=== PATIENT | male | born 1970 | race Caucasian/White ===

== ENCOUNTER 2016-10-21 19:29 | Inpatient (IN) | payer OTHER ==
[2016-10-21 20:25] VITALS: BMI 23.2
--- NOTE | 2016-10-21 20:43 | HP ---
CIWA Score - CIWA Score Nausea/Vomitin Muscle Tremors: 3 Anxiety: 3 Agitation: 2 Paroxysmal Sweats: 2 Orientation: 0-Oriented Tacttile Disturbances: 2-Mild Itch/Numbness/Burn Auditory Disturbances: 2-Mild Harshness/Frighten Visual Disturbances: 2-Mild Sensitivity Headache: 2-Mild CIWA-Ar Total Score: 21 Admission ROS BHS - HPI Chief Complaint: i am here needed help to stop drinking alcohol Allergies/Adverse Reactions: Allergies Allergy/AdvReac Type Severity Reaction Status Date / Time No Known Drug Allergies Allergy Verified 10/21/16 21:42 History of Present Illness: this 46 years old male with alcohol dependence seeking help to stop drinking alcohol,never been in treatment before syncope alcohol related depression weight loss no significant period of sobriety Exam Limitations: No Limitations - Ebola screening Have you traveled outside of the country in the last 21 days: No Have you had contact with anyone from an Ebola affected area: No Have you been sick,other than usual withdrawal symptoms: No Do you have a fever: No - Review of Systems Constitutional: Loss of Appetite, Malaise, Night Sweats, Changes in sleep, Unintentional Wgt. Loss EENT: reports: Nose Congestion Respiratory: reports: No Symptoms reported Cardiac: reports: Palpitations GI: reports: Diarrhea, Nausea, Vomiting, Abdominal cramping : reports: No Symptoms Reported Musculoskeletal: reports: Back Pain, Muscle Pain Integumentary: reports: Dryness Neuro: reports: Headache, Tremors Endocrine: reports: No Symptoms Reported Hematology: reports: No Symptoms Reported Psychiatric: reports: Depressed Patient History - Patient Medical History Hx Anemia: No Hx Asthma: No Hx Chronic Obstructive Pulmonary Disease (COPD): No Hx Cancer: No Hx Cardiac Disorders: No Hx Congestive Heart Failure: No Hx Hypertension: No Hx Hypercholesterolemia: No Hx Pacemaker: No HX Cerebrovascular Accident: No Hx Seizures: No Hx Dementia: No Hx Diabetes: No Hx Gastrointestinal Disorders: No Hx Liver Disease: No Hx Genitourinary Disorders: No Hx Sexually Transmitted Disorders: No Hx Renal Disease (ESRD): No Hx Thyroid Disease: No Hx Human Immunodeficiency Virus (HIV): No (2014 last negative) Hx Hepatitis C: No Hx Depression: No Hx Suicide Attempt: No Hx Bipolar Disorder: No Hx Schizophrenia: No Other Medical History: no suicidal,no homicidal - Patient Surgical History Past Surgical History: Yes Hx Abdominal Surgery: Yes (HERNIA.umbilical hernia repair in 2006) Anesthesia Reaction: No - PPD History Previous Implant?: Yes Documented Results: Negative w/o proof Implanted On Prior [facility] Admission?: No PPD to be Administered?: Yes - Smoking Cessation Smoking history: Never smoked Have you smoked in the past 12 months: No Hx Chewing Tobacco Use: No - Substance & Tx. History Hx Alcohol Use: Yes Hx Substance Use: No Substance Use Type: Alcohol Hx Substance Use Treatment: No - Substances Abused Alcohol Route: Oral Frequency: Daily Amount used: 1 liter of bacardi Age of first use: 17 Date of Last Use: 10/21/16 Family Disease History - Family Disease History Family Disease History: Other: Father (alcohol,leukemia) Admission Physical Exam [facility] - Vital Signs Vital Signs: Vital Signs - 24 hr 10/21/16 20:21 Temperature 98.0 F Pulse Rate 110 H Respiratory 20 Rate Blood Pressure 128/79 - Physical General Appearance: Yes: Moderate Distress, Tremorous, Irritable, Sweating, Anxious HEENTM: Yes: Normal ENT Inspection, BEN, Pharynx Normal Respiratory: Yes: Lungs Clear, Normal Breath Sounds, No Respiratory Distress Neck: Yes: Within Normal Limits, Supple, Trachea in good position Breast: Yes: Within Normal Limits Cardiology: Yes: Within Normal Limits, Regular Rhythm, Regular Rate, S1, S2 Abdominal: Yes: Normal Bowel Sounds, Non Tender, Flat, Soft, Surgical Scar Genitourinary: Yes: Within Normal Limits Back: Yes: Muscle Spasm Musculoskeletal: Yes: full range of Motion, Back pain, Muscle Pain Extremities: Yes: Within Normal Limits, Normal Range of Motion, Tremors 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, Fully Oriented, Alert, Motor Strength 5/5 Integumentary: Yes: Normal Color Lymphatic: Yes: Within Normal Limits - Diagnostic (1) Alcohol dependence with uncomplicated withdrawal Current Visit: Yes Status: Acute (2) Alcohol dependence with uncomplicated intoxication Current Visit: Yes Status: Acute (3) Syncope Current Visit: Yes Status: Acute (4) Depression Current Visit: Yes Status: Acute Cleared for Admission [facility] - Detox or Rehab [facility] Level of Care: Medically Managed Detox Regimen/Protocol: Librium S Breath Alcohol Content Breath Alcohol Content: 0.311 Urine Drug Screen - Results Drug Screen Negative: No
[2016-10-21] MEDS ORDERED: guaiFENesin/D-METHORPHAN HB 10 ML UNIT-DOSE CUPS PO PRN (20:59)
[2016-10-21] MEDS ORDERED: MAGNESIUM CITRATE 300 ML BOTTLE PO PRN (20:59)
[2016-10-21] MEDS ORDERED: MAG HYDROX/AL HYDROX/SIMETH 30 ML UNIT-DOSE CUP PO PRN (20:59)
[2016-10-21] MEDS ORDERED: ACETAMINOPHEN 325 MG TABLET (FP) PO PRN (20:59)
[2016-10-21] MEDS ORDERED: MENTHOL/PHENOL 1 EACH UD MM PRN (20:59)
[2016-10-21] MEDS ORDERED: LOPERAMIDE HCL 2 MG CAPSULE PO PRN (20:59)
[2016-10-21] MEDS ORDERED: MAGNESIUM HYDROX 2400MG/30ML ORAL SUSPENSION 30 ML CUP PO PRN (20:59)
[2016-10-21] MEDS ORDERED: chlordiazePOXIDE HCL 25 MG CAPSULE PO ONE (20:59)
[2016-10-21] MEDS ORDERED: P-EPHED 60MG/TRIPROLIDI 2.5MG TABLET PO PRN (20:59)
[2016-10-21] MEDS ORDERED: hydrOXYzine PAMOATE 50 MG CAPSULE (FP) PO PRN (20:59)
[2016-10-21] MEDS ORDERED: IBUPROFEN 400 MG TABLET (FP) PO PRN (20:59)
[2016-10-21] MEDS: THIAMINE HCL 100 MG TABLET (FP) PO SCH (22:20)
[2016-10-21] MEDS: chlordiazePOXIDE HCL 25 MG CAPSULE PO SCH (22:21)
[2016-10-22] MEDS: diphenhydrAMINE HCL 50 MG CAPSULE PO PRN (01:33)
[2016-10-22] MEDS: chlordiazePOXIDE HCL 25 MG CAPSULE PO PRN ×2 (01:33→14:55)
[2016-10-22] MEDS: chlordiazePOXIDE HCL 25 MG CAPSULE PO SCH ×4 (05:12→22:34)
--- NOTE | 2016-10-22 08:28 | CONSULT ---
[facility] Psychiatric Consult - Data Date of interview: 10/22/16 Admission source: [facility] Identifying data: This is 46 years old guinean speaking male with no psychiatric hospitalization history iontoxciated wioth: Alcohol Substance Abuse History: - Smoking Cessation. Smoking history: Never smoked. Have you smoked in the past 12 months: No. Hx Chewing Tobacco Use: No. - Substance & Tx. History. Hx Alcohol Use: Yes. Hx Substance Use: No. Substance Use Type: Alcohol. Hx Substance Use Treatment: No. - Substances Abused. Alcohol. Route: Oral. Frequency: Daily. Amount used: 1 liter of bacardi. Age of first use: 17. Date of Last Use: 10/21/16 Medical History: Syncope history, GERD Psychiatric History: Patient reports history of depression, reports no psychiatric medications taking prior to admission, reports no psychioatric hospitalization history as well, denies suicidal history Physical/Sexual Abuse/Trauma History: Denies Additional Comment: Obsrvation. Detox [facility] Protocol Mental Status Exam - Mental Status Exam Alert and Oriented to: Person Cognitive Function: Fair Patient Appearance: Unkempt Mood: Anxious Affect: Mood Congruent Patient Behavior: Cooperative Speech Pattern: Appropriate Voice Loudness: Normal Thought Process: Circumstantial Thought Disorder: Being Controlled Hallucinations: Denies Suicidal Ideation: Denies Homicidal Ideation: Denies Insight/Judgement: Fair Sleep: Difficulty falling asleep Appetite: Weight loss Muscle strength/Tone: Normal Gait/Station: Shuffling Additional Comments: Obsrvation. 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 Detox [facility] Protocol
[2016-10-22 10:02] LABS: MCH 31.1 pg (25.7-33.7); MCHC 33.2 g/dl (32.0-35.9); MEAN CELL VOLUME 93.9 fl (80-96); MEAN PLT VOLUME 8.9 fl (7.5-11.1); PLATELET COUNT 84 K/MM3 (134-434); RDW 16.8 % (11.9-15.9)
[2016-10-22] MEDS: PRENATAL VITAMINS W/ FOLIC ACID TABLET (FP) PO SCH (10:16)
[2016-10-22 10:28] LABS: ALBUMIN 3.4 g/dl (3.4-5.0); ALK PHOS 86 U/L (45-117); ANION GAP 7 (8-16); BILIRUBIN,TOTAL 0.6 mg/dL (0.2-1.0); CALCIUM 9.2 mg/dL (8.5-10.1); CO2 30 mmol/L (21-32); CREATININE 0.6 mg/dL (0.7-1.3); GLUCOSE,RANDOM 103 mg/dL (74-106); SGOT/AST 70 U/L (15-37); SGPT/ALT 33 U/L (12-78); TOT PROT 6.6 g/dl (6.4-8.2)
--- NOTE | 2016-10-22 11:42 | PN ---
[facility] CIWA - CIWA Score Nausea/Vomitin Muscle Tremors: 3 Anxiety: 3 Agitation: 2 Paroxysmal Sweats: 1-Minimal Palms Moist Orientation: 0-Oriented Tacttile Disturbances: 1-Very Mild Itch/Numbness Auditory Disturbances: 1-Very Mild Visual Disturbances: 1-Very Mild Sensitivity Headache: 2-Mild CIWA-Ar Total Score: 17 S Progress Note (SOAP) Subjective: ALERT,IRRITABLE,ANXIOUS,INTERRUPTED SLEEP,TREMOR Objective: 10/22/16 11:40 Vital Signs Temperature 98.2 F 10/22/16 10:00 Pulse Rate 97 H 10/22/16 10:00 Respiratory Rate 20 10/22/16 10:00 Blood Pressure 130/82 10/22/16 10:00 O2 Sat by Pulse Oximetry (%) EK NSR,NORMAL ECG Laboratory Last Values WBC 3.0 K/mm3 (4.0-10.0) L 10/22/16 06:30 RBC 4.15 M/mm3 (4.00-5.60) D 10/22/16 06:30 Hgb 12.9 GM/dL (11.7-16.9) D 10/22/16 06:30 Hct 39.0 % (35.4-49) D 10/22/16 06:30 MCV 93.9 fl (80-96) 10/22/16 06:30 MCH 31.1 pg (25.7-33.7) 10/22/16 06:30 MCHC 33.2 g/dl (32.0-35.9) 10/22/16 06:30 RDW 16.8 % (11.9-15.9) H 10/22/16 06:30 Plt Count 84 K/MM3 (134-434) L D 10/22/16 06:30 MPV 8.9 fl (7.5-11.1) 10/22/16 06:30 Sodium 137 mmol/L (136-145) 10/22/16 06:30 Potassium 3.2 mmol/L (3.5-5.1) L 10/22/16 06:30 Chloride 100 mmol/L (98-107) 10/22/16 06:30 Carbon Dioxide 30 mmol/L (21-32) 10/22/16 06:30 Anion Gap 7 (8-16) L 10/22/16 06:30 BUN 12 mg/dL (7-18) 10/22/16 06:30 Creatinine 0.6 mg/dL (0.7-1.3) L D 10/22/16 06:30 Creat Clearance w eGFR > 60 (>60) 10/22/16 06:30 Random Glucose 103 mg/dL (74-106) D 10/22/16 06:30 Calcium 9.2 mg/dL (8.5-10.1) 10/22/16 06:30 Total Bilirubin 0.6 mg/dL (0.2-1.0) D 10/22/16 06:30 AST 70 U/L (15-37) H D 10/22/16 06:30 ALT 33 U/L (12-78) D 10/22/16 06:30 Alkaline Phosphatase 86 U/L (45-117) 10/22/16 06:30 Total Protein 6.6 g/dl (6.4-8.2) 10/22/16 06:30 Albumin 3.4 g/dl (3.4-5.0) 10/22/16 06:30 RPR Titer Nonreactive (NONREACTIVE) 10/22/16 06:30 HYPOKALEMIA Assessment: 10/22/16 11:41 WITHDRAWAL SYMPTOM Plan: CONTINUE DETOX, K DUR 20 MEQ PO BID,INITIAL K IS 3.2
[2016-10-22] MEDS ORDERED: POTASSIUM CHLORIDE TABS 20 MEQ TABLET.ER (FP) PO ONE (12:00)
--- NOTE | 2016-10-22 16:36 | EKG ---
Test Reason : Blood Pressure : / mmHG Vent. Rate : 086 BPM Atrial Rate : 086 BPM P-R Int : 142 ms QRS Dur : 108 ms QT Int : 390 ms P-R-T Axes : 035 046 033 degrees QTc Int : 466 ms NORMAL SINUS RHYTHM NORMAL ECG WHEN COMPARED WITH ECG OF 30-SEP-2015 15:55, NO SIGNIFICANT CHANGE WAS FOUND Confirmed by DOMINIQUE GARCIA MD ([id number]) on 10/22/2016 4:35:25 PM Referred By: Confirmed By:DOMINIQUE GARCIA MD
[2016-10-22] MEDS: THIAMINE HCL 100 MG TABLET (FP) PO SCH (22:34)
[2016-10-22] MEDS: POTASSIUM CHLORIDE TABS 20 MEQ TABLET.ER (FP) PO SCH (22:35)
[2016-10-23] MEDS: chlordiazePOXIDE HCL 25 MG CAPSULE PO SCH ×3 (05:51→17:16)
[2016-10-23] MEDS: PRENATAL VITAMINS W/ FOLIC ACID TABLET (FP) PO SCH (10:18)
[2016-10-23] MEDS: POTASSIUM CHLORIDE TABS 20 MEQ TABLET.ER (FP) PO SCH ×2 (10:18→22:11)
--- NOTE | 2016-10-23 11:13 | PN ---
S CIWA - CIWA Score Nausea/Vomitin Muscle Tremors: 3 Anxiety: 2 Agitation: 2 Paroxysmal Sweats: 3 Orientation: 0-Oriented Tacttile Disturbances: 1-Very Mild Itch/Numbness Auditory Disturbances: 0-None Visual Disturbances: 0-None Headache: 0-None Present CIWA-Ar Total Score: 13 S Progress Note (SOAP) Subjective: interrupted sleep-mild with mild tremors Objective: 10/23/16 11:11 Vital Signs Temperature 98.1 F 10/23/16 10:00 Pulse Rate 93 H 10/23/16 10:00 Respiratory Rate 18 10/23/16 10:00 Blood Pressure 119/80 10/23/16 10:00 O2 Sat by Pulse Oximetry (%) Laboratory Tests 10/22/16 10/22/16 10/22/16 06:30 06:30 06:30 WBC 3.0 L RBC 4.15 D Hgb 12.9 D Hct 39.0 D MCV 93.9 MCH 31.1 MCHC 33.2 RDW 16.8 H Plt Count 84 L D MPV 8.9 Sodium 137 Potassium 3.2 L Chloride 100 Carbon Dioxide 30 Anion Gap 7 L BUN 12 Creatinine 0.6 L D Creat Clearance w eGFR > 60 Random Glucose 103 D Calcium 9.2 Total Bilirubin 0.6 D AST 70 H D ALT 33 D Alkaline Phosphatase 86 Total Protein 6.6 Albumin 3.4 RPR Titer Nonreactive pt aox3 in nad ambulating Assessment: 10/23/16 11:12 withdrawal sx's Plan: cont. detox increase fluids librium prn
[2016-10-23] MEDS: chlordiazePOXIDE HCL 25 MG CAPSULE PO PRN (12:50)
[2016-10-23 14:08] LABS: URINE APPEARANCE CLEAR; URINE BILIRUBIN NEGATIVE (NEGATIVE); URINE BLOOD NEGATIVE (NEGATIVE); URINE COLOR DKYELLOW; URINE GLUCOSE (UA) NEGATIVE (NEGATIVE); URINE KETONE NEGATIVE (NEGATIVE); URINE LEUK ESTERASE NEGATIVE (NEGATIVE); URINE NITRITE NEGATIVE (NEGATIVE); URINE PROTEIN NEGATIVE (NEGATIVE); URINE UROBILINOGEN NEGATIVE mg/dL (0.2-1.0)
[2016-10-23] MEDS: diphenhydrAMINE HCL 50 MG CAPSULE PO PRN (22:11)
[2016-10-23] MEDS: THIAMINE HCL 100 MG TABLET (FP) PO SCH (22:11)
[2016-10-23] MEDS: chlordiazePOXIDE 5 MG CAPSULE PO SCH (22:11)
[2016-10-24] MEDS: chlordiazePOXIDE 5 MG CAPSULE PO SCH ×3 (05:38→18:12)
[2016-10-24] MEDS: POTASSIUM CHLORIDE TABS 20 MEQ TABLET.ER (FP) PO SCH ×2 (10:25→22:13)
[2016-10-24] MEDS: PRENATAL VITAMINS W/ FOLIC ACID TABLET (FP) PO SCH (10:25)
--- NOTE | 2016-10-24 12:57 | PN ---
S Progress Note (SOAP) Subjective: alert,irritable,anxious,interrupted sleep,tremor Objective: 10/24/16 12:56 Vital Signs Temperature 98.1 F 10/24/16 09:49 Pulse Rate 89 10/24/16 09:49 Respiratory Rate 18 10/24/16 09:49 Blood Pressure 108/67 10/24/16 09:49 O2 Sat by Pulse Oximetry (%) 10/24/16 12:59 Assessment: 10/24/16 12:59 withdrawal symptom 10/24/16 13:00 Plan: continue detox,discharge in am
[2016-10-24] MEDS: chlordiazePOXIDE HCL 25 MG CAPSULE PO PRN (14:52)
[2016-10-24] MEDS: chlordiazePOXIDE HCL 10 MG CAPSULE PO SCH (22:13)
[2016-10-24] MEDS: THIAMINE HCL 100 MG TABLET (FP) PO SCH (22:13)
[2016-10-24] MEDS: diphenhydrAMINE HCL 50 MG CAPSULE PO PRN (22:14)
[2016-10-25] MEDS ORDERED: chlordiazePOXIDE 5 MG CAPSULE ONE (04:30)
[2016-10-25] MEDS: chlordiazePOXIDE HCL 10 MG CAPSULE PO SCH (05:29)
[2016-10-25 06:52] VITALS: BP 106/56; PULSE 96; TEMP 97.5
--- NOTE | 2016-10-25 09:04 | DS ---
[facility] Detox Discharge Summary Admission Date: 10/21/16 Discharge Date: 10/25/16 - History Present History: Alcohol Dependence Additional Comments: FOLLOW UP WITH AFTER [facility] PROGRAM [facility] Pertinent Past History: SYNCOPE - Physical Exam Results Vital Signs: Vital Signs Temperature 97.5 F L 10/25/16 06:51 Pulse Rate 96 H 10/25/16 06:51 Respiratory Rate 18 10/25/16 06:51 Blood Pressure 106/56 10/25/16 06:51 O2 Sat by Pulse Oximetry (%) Pertinent Admission Physical Exam Findings: WITHDRAWAL SYMPTOM - Treatment Hospital Course: Detox Protocol Followed, Detoxed Safely, Responded well, Discharged Condition Good Patient has Accepted a Rehab Referral to: DECLINED - Medication Discharge Medications: Ambulatory Orders NK [No Known Home Medication] 10/21/16 - Diagnosis (1) Alcohol dependence with uncomplicated withdrawal Current Visit: Yes Status: Acute (2) Alcohol dependence with uncomplicated intoxication Current Visit: Yes Status: Acute (3) Syncope Current Visit: Yes Status: Acute (4) Depression Current Visit: Yes Status: Acute (5) Hypokalemia Current Visit: Yes Status: Acute - AMA Did Patient Leave Against Medical Advice: No
[2016-10-25] MEDS: POTASSIUM CHLORIDE TABS 20 MEQ TABLET.ER (FP) PO SCH (09:19)
[2016-10-25] MEDS: PRENATAL VITAMINS W/ FOLIC ACID TABLET (FP) PO SCH (09:19)
== END 2016-10-25 09:35 | disposition home or self-care (01) | DRG 775 ==
LOC: YASAS 19:29 → Y6N 20:40
PROVIDERS: ADMIT Internal Medicine; ATTEND Internal Medicine
PROC: HZ2ZZZZ Detoxification Services for Substance Abuse Treatment (ICD-10-PCS; principal; 2016-10-25)
DX: F10.230 Alcohol dependence with withdrawal, uncomplicated (principal); F32.9 Major depressive disorder, single episode, unspecified; F10.24 Alcohol dependence with alcohol-induced mood disorder; R55 Syncope and collapse; E87.6 Hypokalemia
CPT/HCPCS: 36415; 80053; 81003; 85027; 86593; 93005; 93010

== ENCOUNTER 2016-11-19 20:15 | Emergency (ER) | payer OTHER ==
[2016-11-19 20:30] VITALS: BP 152/101; PULSE 129; TEMP 98.3; BMI 25.0
[2016-11-19 21:02] LABS: BASOPHIL 0.9 % (0-2.0); EOSINOPHIL 4.4 % (0-4.5); MCH 31.1 pg (25.7-33.7); MCHC 33.3 g/dl (32.0-35.9); MEAN CELL VOLUME 93.6 fl (80-96); MEAN PLT VOLUME 8.9 fl (7.5-11.1); PLATELET COUNT 179 K/MM3 (134-434); RDW 15.7 % (11.9-15.9); WHITE BLOOD COUNT 7.3 K/mm3 (4.0-10.0)
[2016-11-19 21:27] LABS: ALBUMIN 3.7 g/dl (3.4-5.0); ANION GAP 8 (8-16); BILIRUBIN,TOTAL 0.4 mg/dL (0.2-1.0); CALCIUM 8.5 mg/dL (8.5-10.1); CO2 23 mmol/L (21-32); GLUCOSE,RANDOM 106 mg/dL (74-106); MAGNESIUM 1.9 mg/dL (1.8-2.4); SGOT/AST 18 U/L (15-37); SGPT/ALT 22 U/L (12-78)
[2016-11-19] MEDS ORDERED: SODIUM CHLORIDE 1,000 ML IV STA (21:28)
[2016-11-19 21:30] LABS: ALK PHOS 89 U/L (45-117); CPK 117 IU/L (39-308); TROPONIN I < 0.02 ng/ml (0.00-0.05)
--- NOTE | 2016-11-19 21:31 | PDOC ---
History of Present Illness - General History Source: Patient, Family Exam Limitations: No Limitations - History of Present Illness Initial Comments: 11/19/16 21:31 The patient is a 46 year old male with a significant past medical history of ETOH abuse and seizures who presents to the ED s/p seizure earlier today. Patient states was visiting a family member that recently in the hospital and as he was exiting the hospital, he had a seizure. As per family, the patients eyes were rolled back and his arm stiffened. Family states they caught the patient as he was falling and denies head injury. Patient reports a headache and left sided mouth numbness prior to the seizure episode. He notes he does not remember the seizure. Patient notes he typically gets seizures after quitting cold turkey from alcohol abuse. He states his last drink was on October 18. Denies recent illness. Denies fevers or chills. Denies nausea, vomiting, or diarrhea. Denies any other symptoms. <Nish Chung - Last Filed: 11/19/16 22:42> - General History Source: Patient Exam Limitations: No Limitations <Tomás Rasmussen - Last Filed: 11/19/16 22:57> - General Chief Complaint: Seizure Stated Complaint: SEIZURE Time Seen by Provider: 11/19/16 20:31 Past History <Nish Chung - Last Filed: 11/19/16 22:42> - Past Medical History Anemia: No Asthma: No Cancer: No Cardiac Disorders: No CVA: No COPD: No CHF: No Dementia: No Diabetes: No GI Disorders: No Disorders: No HTN: No Hypercholesterolemia: No Kidney Stones: No Liver Disease: No Suicide Attempt (Hx): No Seizures: No Thyroid Disease: No - Surgical History Abdominal Surgery: Yes (HERNIA.umbilical hernia repair in 2006) - Reproductive History Testicular Surgery: No - Immunization History Immunization Up to Date: Yes - Psycho/Social/Smoking Cessation Hx Anxiety: No Suicidal Ideation: No Smoking History: Unknown if ever smoked Have you smoked in the past 12 months: No Information on smoking cessation initiated: No Hx Alcohol Use: Yes (unknown) Drug/Substance Use Hx: No Substance Use Type: Alcohol Hx Substance Use Treatment: No <Tomás Rasmussen - Last Filed: 11/19/16 22:57> - Past Medical History Allergies/Adverse Reactions: Allergies Allergy/AdvReac Type Severity Reaction Status Date / Time No Known Drug Allergies Allergy Verified 11/19/16 20:25 Home Medications: Ambulatory Orders Potassium Chloride [K-Dur -] 20 meq PO BID #10 tab 10/25/16 Review of Systems - Review of Systems Able to Perform ROS?: Yes Comments:: 11/19/16 21:32 GENERAL/CONSTITUTIONAL: No fever or chills. No weakness. HEAD, EYES, EARS, NOSE AND THROAT: No change in vision. No ear pain or discharge. No sore throat. CARDIOVASCULAR: No chest pain or shortness of breath. RESPIRATORY: No cough, wheezing, or hemoptysis. GASTROINTESTINAL: No nausea, vomiting, diarrhea or constipation. GENITOURINARY: No dysuria, frequency, or change in urination. MUSCULOSKELETAL: No joint or muscle swelling or pain. No neck or back pain. SKIN: No rash NEUROLOGIC: + seizure, headache, mouth numbness, LOC. ENDOCRINE: No increased thirst. No abnormal weight change. HEMATOLOGIC/LYMPHATIC: No anemia, easy bleeding, or history of blood clots. ALLERGIC/IMMUNOLOGIC: No hives or skin allergy. All Other Systems: Reviewed and Negative <Nish Chung - Last Filed: 11/19/16 22:42> *Physical Exam - Vital Signs Last Vital Signs Temp Pulse Resp BP Pulse Ox 98.3 F 129 H 18 152/101 100 11/19/16 20:25 11/19/16 20:25 11/19/16 20:25 11/19/16 20:25 11/19/16 20:25 - Physical Exam Comments: 11/19/16 21:32 GENERAL: Awake, alert, and fully oriented, in no acute distress HEAD: No signs of trauma EYES: PERRLA, EOMI, sclera anicteric, conjunctiva clear ENT: Auricles normal inspection, hearing grossly normal, nares patent, oropharynx clear without exudates. Moist mucosa NECK: Normal ROM, supple, no lymphadenopathy, JVD, or masses LUNGS: Breath sounds equal, clear to auscultation bilaterally. No wheezes, and no crackles HEART: Regular rate and rhythm, normal S1 and S2, no murmurs, rubs or gallops ABDOMEN: Soft, nontender, normoactive bowel sounds. No guarding, no rebound. No masses EXTREMITIES: Normal range of motion, no edema. No clubbing or cyanosis. No cords, erythema, or tenderness NEUROLOGICAL: + essential tremors, no pronator drift. Cranial nerves II-XII intact, 5/5 strength, sensation intact throughout. Speech normal. SKIN: Warm, Dry, normal turgor, no rashes or lesions noted. <Nish Chung - Last Filed: 11/19/16 22:42> - Vital Signs Last Vital Signs Temp Pulse Resp BP Pulse Ox 98.3 F 129 H 18 152/101 100 11/19/16 20:25 11/19/16 20:25 11/19/16 20:25 11/19/16 20:25 11/19/16 20:25 <Tomás Rasmussen - Last Filed: 11/19/16 22:57> Heart Score/ECG Review #1 ECG reviewed & interpreted by me at: 20:25 11/19/16 21:53 Sinus tachycardia 125, no std/harpreet, normal axis, normal intervals, QTC 476 msec <Tomás Rasmussen - Last Filed: 11/19/16 22:57> ED Treatment Course - LABORATORY CBC & Chemistry Diagram: 11/19/16 20:56 11/19/16 20:56 - ADDITIONAL ORDERS Additional order review: Laboratory Results 11/19/16 20:56 Alcohol, Quantitative < 5.0 11/19/16 20:56 RBC 4.40 MCV 93.6 MCHC 33.3 RDW 15.7 MPV 8.9 Neutrophils % 60.0 Lymphocytes % 22.2 Monocytes % 12.5 H Eosinophils % 4.4 D Basophils % 0.9 <Nish Chung - Last Filed: 11/19/16 22:42> - LABORATORY CBC & Chemistry Diagram: 11/19/16 20:56 11/19/16 20:56 - ADDITIONAL ORDERS Additional order review: Laboratory Results 11/19/16 20:56 Alcohol, Quantitative < 5.0 11/19/16 20:56 RBC 4.40 MCV 93.6 MCHC 33.3 RDW 15.7 MPV 8.9 Neutrophils % 60.0 Lymphocytes % 22.2 Monocytes % 12.5 H Eosinophils % 4.4 D Basophils % 0.9 - RADIOLOGY Radiology Studies Ordered: Category Date Time Status HEAD CT WITHOUT CONTRAST [CT] Stat CT Scan 11/19/16 20:35 Ordered <Tomás Rasmussen - Last Filed: 11/19/16 22:57> Medical Decision Making - Medical Decision Making 11/19/16 22:[address] Escobar at 22:42 <Nish Chung - Last Filed: 11/19/16 22:42> - Medical Decision Making 11/19/16 21:29 A portion of this note was documented by scribe services under my direction. I have reviewed the details of the note, within reason, and agree with the documentation with the following case summary and management plan written by me. Patient treated in the ED. Nursing notes are reviewed and incorporated into the medical decision-making. Vital signs reviewed. Peripheral IV access obtained by the nurse, laboratory studies are drawn and sent, reviewed and interpreted by myself. Vital Signs Temp Pulse Resp BP Pulse Ox 98.3 F 129 H 18 152/101 100 11/19/16 20:25 11/19/16 20:25 11/19/16 20:25 11/19/16 20:25 11/19/16 20:25 46-year-old male with prior history of alcohol abuse, essential tremors presents with seizure. The patient was here visiting another patient in the hospital when in the waiting room he had a grand mal seizure witnessed by his family that lasted for minutes. Was called by the family member and did not hit the ground. Patient had a short postictal period and had returned back to baseline. Denied recent illnesses, fevers, chills. Denies headache, nausea, vomiting. Does not take AED. Patient reports that he had a seizure a significant time ago in the setting of alcohol withdrawal but denies drinking alcohol since October. Patient was a rapid response in the hospital. We'll need to obtain a head CT, labs to rule out secondary causes for seizure. Within differential is primary epilepsy. We'll touch base with a neurologist. Labs, IV fluids and reassess. 11/19/16 22:54 CBC, BMP 11/19/16 20:56 11/19/16 20:56 CMP Sodium 140 mmol/L (136-145) 11/19/16 20:56 Potassium 3.6 mmol/L (3.5-5.1) 11/19/16 20:56 Chloride 109 mmol/L (98-107) H 11/19/16 20:56 Carbon Dioxide 23 mmol/L (21-32) D 11/19/16 20:56 Anion Gap 8 (8-16) 11/19/16 20:56 BUN 15 mg/dL (7-18) D 11/19/16 20:56 Creatinine 1.0 mg/dL (0.7-1.3) D 11/19/16 20:56 Creat Clearance w eGFR > 60 (>60) 11/19/16 20:56 Random Glucose 106 mg/dL (74-106) 11/19/16 20:56 Calcium 8.5 mg/dL (8.5-10.1) 11/19/16 20:56 Phosphorus 2.0 mg/dL (2.5-4.9) L 11/19/16 20:56 Magnesium 1.9 mg/dL (1.8-2.4) D 11/19/16 20:56 Total Bilirubin 0.4 mg/dL (0.2-1.0) D 11/19/16 20:56 AST 18 U/L (15-37) D 11/19/16 20:56 ALT 22 U/L (12-78) D 11/19/16 20:56 Alkaline Phosphatase 89 U/L (45-117) 11/19/16 20:56 Creatine Kinase 117 IU/L (39-308) 11/19/16 20:56 Troponin I < 0.02 ng/ml (0.00-0.05) 11/19/16 20:56 Total Protein 7.0 g/dl (6.4-8.2) 11/19/16 20:56 Albumin 3.7 g/dl (3.4-5.0) 11/19/16 20:56 Urine Test Results Urine Color Ltyellow 11/19/16 21:24 Urine Appearance Clear 11/19/16 21:24 Urine pH 5.0 (5.0-8.0) D 11/19/16 21:24 Ur Specific [place] >= 1.030 (1.005-1.025) H 11/19/16 21:24 Urine Protein Negative (NEGATIVE) 11/19/16 21:24 Urine Glucose (UA) Negative (NEGATIVE) 11/19/16 21:24 Urine Ketones Negative (NEGATIVE) 11/19/16 21:24 Urine Blood Negative (NEGATIVE) 11/19/16 21:24 Urine Nitrite Negative (NEGATIVE) 11/19/16 21:24 Urine Bilirubin Negative (NEGATIVE) 11/19/16 21:24 Ur Leukocyte Esterase Negative (NEGATIVE) 11/19/16 21:[address] reviewed. No acute findings. I discussed the case with the neurologist Dr. Escobar. At this time, defers on taking AEDs were giving AEDs. Requests that the patient follows up in his office next week. I had given patient instructions to return to the ED if patient has a recurrent seizure. Patient verbalizes understanding and will go home. Patient understands not to drive his car until he is cleared by the neurologist. I discussed the physical exam findings, ancillary test results and final diagnoses with the patient. I answered all of the patient's questions. The patient was satisfied with the care received and felt comfortable with the discharge plan and treatment plan. The patient will call their primary care physician within 24 hours to arrange follow-up and will return to the Emergency Department with any new, persistant or worsening symptoms. <Tomás Rasmussen - Last Filed: 11/19/16 22:57> *DC/Admit/Observation/Transfer - Attestations Scribe Attestion: 11/19/16 21:32 Documentation prepared by Nish Chung, acting as bilingual medical receptionist for Tomás Rasmussen MD <Nish Chung - Last Filed: 11/19/16 22:42> - Discharge Dispostion Admit: No <Tomás Rasmussen - Last Filed: 11/19/16 22:57> Diagnosis at time of Disposition: Seizure - Discharge Dispostion Disposition: HOME Condition at time of disposition: Improved - Referrals Referrals: Cielo Eric MD [Primary Care Provider] - Devan Escobar MD [Staff Physician] - - Patient Instructions Printed Discharge Instructions: DI for Seizure Disorder -- Adult Additional Instructions: Your head CT and blood work is unremarkable. Please make an appointment with a neurologist. Do not drive your car until you're cleared by the neurologist.
[2016-11-19 21:46] LABS: URINE APPEARANCE CLEAR; URINE BILIRUBIN NEGATIVE (NEGATIVE); URINE BLOOD NEGATIVE (NEGATIVE); URINE COLOR LTYELLOW; URINE GLUCOSE (UA) NEGATIVE (NEGATIVE); URINE KETONE NEGATIVE (NEGATIVE); URINE LEUK ESTERASE NEGATIVE (NEGATIVE); URINE NITRITE NEGATIVE (NEGATIVE); URINE PROTEIN NEGATIVE (NEGATIVE); URINE UROBILINOGEN NEGATIVE mg/dL (0.2-1.0)
[2016-11-19 21:56] LABS: URINE MARIJUANA THC NEGATIVE ng/ml (CUTOFF=50)
--- NOTE | 2016-11-20 10:23 | EKG ---
Test Reason : Blood Pressure : / mmHG Vent. Rate : 125 BPM Atrial Rate : 125 BPM P-R Int : 148 ms QRS Dur : 092 ms QT Int : 330 ms P-R-T Axes : 052 011 028 degrees QTc Int : 476 ms SINUS TACHYCARDIA POSSIBLE LEFT ATRIAL ENLARGEMENT WHEN COMPARED WITH ECG OF 21-OCT-2016 20:29, NO SIGNIFICANT CHANGE WAS FOUND Confirmed by SHIRA HOGAN MD ([id number]) on 11/20/2016 10:22:34 AM Referred By: Confirmed By:SHIRA HOGAN MD
== END 2016-11-19 23:34 | disposition home or self-care (01) ==
LOC: JER 20:15
PROC: 3E0337Z Introduction of Electrolytic and Water Balance Substance into Peripheral Vein, Percutaneous Approach (ICD-10-PCS; principal; 2016-11-19)
DX: G40.909 Epilepsy, unspecified, not intractable, without status epilepticus (principal); F10.21 Alcohol dependence, in remission
CPT/HCPCS: 36415; 70450-TC; 80053; 80307; 81003; 83735; 84100; 84484; 85025; 93005; 93010; 99281-25